=== PATIENT | male | born 1940 | race Caucasian/White ===

== ENCOUNTER 2016-11-12 10:01 | Outpatient (CLI) | payer MEDICARE, OTHER | END 2016-11-12 10:02 | LOC: POD 10:01 | PROVIDERS: ATTEND Podiatrist Public Medicine | DX: B35.1 Tinea unguium (principal); L60.0 Ingrowing nail; M79.674 Pain in right toe(s); M79.675 Pain in left toe(s); M20.11 Hallux valgus (acquired), right foot; M20.12 Hallux valgus (acquired), left foot | CPT/HCPCS: 11721; G0463 ==

== ENCOUNTER 2017-02-11 09:51 | Outpatient (CLI) | payer MEDICARE, OTHER | END 2017-02-11 09:52 | LOC: POD 09:51 | PROVIDERS: ATTEND Podiatrist Public Medicine | DX: B35.1 Tinea unguium (principal); L60.0 Ingrowing nail; M79.674 Pain in right toe(s); M79.675 Pain in left toe(s); M20.11 Hallux valgus (acquired), right foot; M20.12 Hallux valgus (acquired), left foot | CPT/HCPCS: 11721; G0463 ==

== ENCOUNTER 2017-03-23 10:08 | Outpatient (CLI) | payer MEDICARE, OTHER ==
[2017-03-23 10:24] LABS: BASOPHILS % 0.8 (0.0-1.5); EOSINOPHILS % 1.3 % (0.0-6.8); MEAN CORPUSCULAR VOLUME 84.5 fl (80.0-100.0); MONOCYTES % 5.8 % (0.0-11.0); NEUTROPHILS # 5.4 # k/uL (1.4-7.7)
[2017-03-23 11:04] LABS: eGFR (African) > 60; eGFR (Non-African) > 60
== END 2017-03-23 10:09 ==
LOC: LAB 10:08
PROVIDERS: ATTEND Family Medicine
DX: I10 Essential (primary) hypertension (principal)
CPT/HCPCS: 36415; 80053; 85025

== ENCOUNTER 2017-05-13 09:56 | Outpatient (CLI) | payer MEDICARE, OTHER | END 2017-05-13 09:57 | LOC: POD 09:56 | PROVIDERS: ATTEND Podiatrist Public Medicine | DX: B35.1 Tinea unguium (principal); L60.0 Ingrowing nail; M20.11 Hallux valgus (acquired), right foot; M79.675 Pain in left toe(s); M79.674 Pain in right toe(s); M20.12 Hallux valgus (acquired), left foot | CPT/HCPCS: 11721; G0463 ==

== ENCOUNTER 2017-08-12 10:21 | Outpatient (CLI) | payer MEDICARE, OTHER | END 2017-08-12 10:22 | LOC: POD 10:21 | PROVIDERS: ATTEND Podiatrist Public Medicine | DX: M79.674 Pain in right toe(s) (principal); M79.675 Pain in left toe(s); B35.1 Tinea unguium; L60.0 Ingrowing nail; M20.11 Hallux valgus (acquired), right foot; M20.12 Hallux valgus (acquired), left foot | CPT/HCPCS: 11721; G0463 ==

== ENCOUNTER 2017-11-18 09:42 | Outpatient (CLI) | payer MEDICARE, OTHER | END 2017-11-18 09:43 | LOC: POD 09:42 | PROVIDERS: ATTEND Podiatrist Public Medicine | DX: M79.674 Pain in right toe(s) (principal); M79.675 Pain in left toe(s); B35.1 Tinea unguium; L60.0 Ingrowing nail; M20.11 Hallux valgus (acquired), right foot; M20.12 Hallux valgus (acquired), left foot | CPT/HCPCS: 11721; G0463 ==

== ENCOUNTER 2018-02-08 15:07 | Outpatient (CLI) | payer MEDICARE, OTHER ==
--- NOTE | 2018-02-08 18:08 | Diagnostic Imaging Report ---
DMITRY JO [facility] [address] [facility] [address] [address] Report Submission Date: February 08, 2018 4:40:21 PM CDT Patient Study Name: PATRICE CARTER Date: February 08, 2018 3:51:00 PM CDT Modality Type: DX Gender: M Description: LOWER EXTREMITY : 41 Institution: [facility] Physician: DMITRY JO HISTORY: 77-year-old male with chronic left knee pain for the past 4 years since right knee arthroplasty. COMPARISON: None available. TECHNIQUE: AP standing views of the bilateral knees were performed. FINDINGS: No acute fracture is identified about either knee. There is a right knee medial compartment unicompartmental arthroplasty without evidence of loosening or other complication. There is moderate joint space narrowing of the left knee medial compartment. IMPRESSION: 1. No evidence of acute fracture of either knee on these limited AP films. 2. Postoperative changes of unicompartmental arthroplasty of the right knee medial compartment. 3. Moderate joint space narrowing of the left knee medial compartment. Electronically signed on February 08, 2018 4:40:21 PM CDT by: Prosper WYLIE
--- NOTE | 2018-02-08 18:09 | Diagnostic Imaging Report ---
DMITRY JO [facility] [address] [facility] [address] Report Submission Date: February 08, 2018 4:42:06 PM CDT Patient Study Name: PATRICE CARTER Date: February 08, 2018 3:58:04 PM CDT Modality Type: DX Gender: M Description: LOWER EXTREMITY : 41 Institution: [facility] Physician: DMITRY JO HISTORY: 77-year-old male with chronic left knee pain for the past 4 years since right knee arthroplasty. COMPARISON: AP radiograph of the left knee from the same day. TECHNIQUE: Lateral and sunrise views of the left knee were performed. FINDINGS: No acute fracture is identified about the left knee. No significant lateral patellar subluxation on the sunrise view. There are small patellofemoral marginal osteophytes. No definite effusion. IMPRESSION: 1. No fracture or acute osseous abnormality of the left knee. 2. Mild degenerative changes of the patellofemoral compartment and mild to moderate degenerative changes of the medial compartment. Electronically signed on February 08, 2018 4:42:06 PM CDT by: Prosper WYLIE
== END 2018-02-08 15:15 ==
LOC: RAD 15:07
PROVIDERS: ATTEND Family Medicine
DX: M25.562 Pain in left knee (principal)
CPT/HCPCS: 73562; 73565

== ENCOUNTER 2018-02-17 10:17 | Outpatient (CLI) | payer MEDICARE, OTHER | END 2018-02-17 10:20 | LOC: POD 10:17 | PROVIDERS: ATTEND Podiatrist Public Medicine | DX: M79.674 Pain in right toe(s) (principal); M79.675 Pain in left toe(s); B35.1 Tinea unguium; L60.0 Ingrowing nail; M20.11 Hallux valgus (acquired), right foot; M20.12 Hallux valgus (acquired), left foot | CPT/HCPCS: 11721; G0463 ==

== ENCOUNTER 2019-01-05 15:13 | Outpatient (CLI) | payer MEDICARE, OTHER | END 2019-01-05 15:14 | LOC: LAB 15:13 | PROVIDERS: ATTEND Nurse Practitioner Family | DX: E55.9 Vitamin D deficiency, unspecified (principal) | CPT/HCPCS: 36415; 82306 ==

== ENCOUNTER 2019-07-17 10:35 | Emergency (ER) | payer MEDICARE, OTHER ==
[2019-07-17] MEDS ORDERED: 0.9 % SODIUM CHLORIDE 1,000 ML IV ONE (10:44)
[2019-07-17] MEDS ORDERED: ONDANSETRON HCL/PF 4 MG/ 2ML VIAL IVP ONE (10:44)
--- NOTE | 2019-07-17 10:50 | ED Physician Documentation ---
General Adult - HISTORIAN Historian: patient, paramedics - HPI Stated Complaint: weakness and vomiting Chief Complaint: General Adult Additional Information: Patient present to ED via EMS from assisted living after having weakness and vomiting this morning. Patient states he woke up and felt fine, however, he began to feel weak and had 2 episodes of vomiting approximately 2 hours after waking up. He denies any abdominal pain, chest pain, shortness of breath or dizziness. Onset: hours (2) Timing: better Severity: moderate - ROS CONST: weakness. denies: fever CVS/RESP: denies: chest pain, shortness of breath GI/: vomiting, nausea. denies: abdominal pain, diarrhea MS/SKIN/LYMPH: none NEURO/PSYCH: denies: headache, dizziness - PAST HX Past History: hypertension Other History: other (Schizohrenia, Parkinsons) Surgeries/Procedures: none Allergies/Adverse Reactions: Allergies Allergy/AdvReac Type Severity Reaction Status Date / Time lisinopril AdvReac Cough Verified 07/17/19 11:00 Home Medications: Ambulatory Orders Medication Instructions Recorded Carbidopa/Levodopa [Carbidopa-Levo 1 each PO TID 07/17/19 25-100 mg Odt] Cholecalciferol (Vitamin D3) 1,000 unit PO DAILY 07/17/19 [Vitamin D3] Furosemide [Lasix] 20 mg PO DAILY 07/17/19 Ondansetron HCl Rapdis [Zofran Odt] 4 mg PO Q8 PRN #20 tab 07/17/19 - SOCIAL HX Smoking History: non-smoker Alcohol Use: none Drug Use: none - FAMILY HX Family History: No - REVIEWED ASSESSMENTS Nursing Assessment Reviewed: Yes Vitals Reviewed: Yes Progress - Progress Progress: 1137 Patient feeling much better after IVF and Zofran - EKG/XRAY/CT Comments: [address] elevation 59 bpm ED Results Lab/Radiology - Lab Results Lab Results: UA - Glucose trace, +1 blood, specific gravity 1.020 - Radiology Radiology Impressions: Report Submission Date: Jul 17, 2019 11:25:11 AM CDT Patient Study Name: PATRICE CARTER Date: Jul 17, 2019 10:47:33 AM CDT Modality Type: DX Gender: M Description: CHEST 1VIEW : 41 Institution: [facility] Physician: CHIKA BANERJEE HISTORY: 78-year-old male with weakness. COMPARISON: None available. TECHNIQUE: Single portable AP view of the chest was performed with apical lordotic technique. FINDINGS: No pneumothorax, consolidative infiltrates, or pulmonary edema. The heart is enlarged. IMPRESSION: Cardiomegaly without evidence of acute intrathoracic process. Electronically signed on Jul 17, 2019 11:25:11 AM CDT by: Prosper Hernandez - Orders Orders: ED Orders Category Date Time Status Place IV Lock 1T Care 07/17/19 10:43 Active CHEST 1VIEW [RAD] Stat Exams 07/17/19 Ordered CBC/PLATELET/DIFF Routine Lab 07/17/19 Ordered CMP Routine Lab 07/17/19 Ordered NT BNP Stat Lab 07/17/19 Ordered TROPONIN I Stat Lab 07/17/19 Ordered UA W/MICRO IF INDICATED Routine Lab 07/17/19 10:43 Ordered 0.9 % Sodium Chloride [Normal Saline] 1,000 ml Med 07/17/19 10:44 Active IV Q1H Ondansetron HCl/Pf [Zofran] Med 07/17/19 10:44 Discontinued 4 mg IVP NOW ONE EKG WITH COMPARISON Stat Ther 07/17/19 Ordered General Adult Physical Exam - PHYSICAL EXAM GENERAL APPEARANCE: no distress EENT: FORD, dry mucous membranes NECK: supple RESPIRATORY: no resp distress, chest non-tender, breath sounds normal CVS: reg rate & rhythm, heart sounds normal ABDOMEN: soft, normal bowel sounds, non-tender BACK: normal inspection, no CVA tenderness SKIN: warm/dry EXTREMITIES: edema (+1 lower extremity edema bilaterally to mid tib/fib) NEURO: oriented X3, motor nml, mood/affect nml Discharge Clincal Impression: Gastroenteritis Prescriptions: Ondansetron HCl Rapdis [Zofran Odt] 4 mg PO Q8 PRN #20 tab PRN Reason: nausea/vomiting Referrals: Navarro Shepherd MD [Primary Care Provider] - 2 Days Additional Instructions: 1. Take Zofran every 8 hours as needed for nausea 2. Drink plenty of fluids to maintain proper hydration. Avoid caffeine. 3. Follow up with PCP within 1 week 4. Return to ER for new or worsening symptoms Condition: Stable Disposition: 01 HOME, SELF-CARE Decision to Admit: NO Date of Decison to Admit: 07/17/19 Decision Time: 11:40
[2019-07-17 11:02] LABS: BASOPHILS % 0.4 % (0.0-1.5)
[2019-07-17 11:23] LABS: eGFR (Non-African) > 60
--- NOTE | 2019-07-17 13:01 | Diagnostic Imaging Report ---
PATIENT MR#: [id number] PATIENT PATIENT NAME: PATRICE CARTER DATE OF : 1940 REFERRING PHYSICIAN: Julia Fraga EXAM DATE: 07/17/2019 ACCESSION NUMBER: [id number] EXAM DESCRIPTION: KNEE 3 VIEWS Right knee 3 views Clinical history pain Technique AP lateral sunrise Findings: There is a right knee hemiarthroplasty in the medial compartment. There is degenerative art hritis of the lateral compartment. No fracture joint effusion is identified.. Patellofemoral joint narrowing is pre sent. Calcification lateral to the patella represent a loose body or soft tissue calcification Impression: Intact medial compartment the right knee arthroplasty. Degenerative arthritis. No acute bony pathology Read by: Dr. Saji Mckeon Transcribed by: Transcribed Date: Electronically signed by: Dr. Saji Mckeon Date signed: 07/17/2019 1:00:38 PM
--- NOTE | 2019-07-17 14:00 | Diagnostic Imaging Report ---
PATIENT MR#: [id number] PATIENT PATIENT NAME: PATRICE CARTER DATE OF : 1940 REFERRING PHYSICIAN: Julia Fraga EXAM DATE: 07/17/2019 ACCESSION NUMBER: [id number] EXAM DESCRIPTION: CT BRAIN W/O CONTRAST CT brain noncontrast Date of study: July 17, 2019 Note time : 07/17/2019 1:51:03 PM User : Cecile Corley [employer] TECHNIQUE: 5 mm contiguous axial images of the brain, noncontrast. FINDINGS: There is no evidence of intracranial mass effect, hemorrhage, or acute hydrocephalus. The lateral kenneth tricles are enlarged due to atrophy and the 4th ventricle is midline without shift. No acute brain parenchymal ch anges or extra-axial fluid collections are identified. Cerebral and cerebellar atrophy are present. White zina er gliosis. Right periventricular infarct appears old. The calvarium is intact. The visualized sinuses and mastoid air cells are clear. Intracranial atheros clerotic vascular calcification is present. IMPRESSION: No acute intracranial process. Chronic atrophy and white matter gliosis. a Right periventricular lacunar infarct appears to be an old finding although there is no previous CT for comparison Read by: Dr. Sjai Mckeon Transcribed by: Transcribed Date: Electronically signed by: Dr. Saji Mckeon Date signed: 07/17/2019 1:59:38 PM
[2019-07-17 14:45] VITALS: BP 149/67
[2019-07-18 06:43] LABS: COLOR,URINE YELLOW (YELLOW)
[2019-07-18 06:44] LABS: APPEARANCE,URINE CLEAR (CLEAR); OCCULT BLOOD,URINE 1+ (NEGATIVE); PH URINE 7.5 (5.0 - 8.0); UROBILINOGEN URINE 0.2 Eu (0.2-1.0)
--- NOTE | 2019-07-19 13:34 | Diagnostic Imaging Report ---
[facility] [address] [facility] [address] Patient Name: PATRICE CARTER Referring Physician: CHIKA ASH Date of : 1940 Radiologist: Gender: M Date of Service: 07/17/2019 Exam Requested: CHEST 1VIEW HISTORY: 78-year-old male with weakness. COMPARISON: None available. TECHNIQUE: Single portable AP view of the chest was performed with apical lordotic technique. FINDINGS: No pneumothorax, consolidative infiltrates, or pulmonary edema. The heart is enlarged. IMPRESSION: Cardiomegaly without evidence of acute intrathoracic process. N
== END 2019-07-17 14:31 | disposition home or self-care (01) ==
LOC: ED 10:35
DX: K52.9 Noninfective gastroenteritis and colitis, unspecified (principal)
CPT/HCPCS: 36415; 70450; 71045; 73562; 80053; 81002; 83880; 84484; 85025; 93005; 96361; 96374; 99283; 99284; J2405; J7030; S1016

== ENCOUNTER 2019-07-18 10:40 | Emergency (ER) | payer MEDICARE, OTHER ==
--- NOTE | 2019-07-18 11:29 | ED Physician Documentation ---
General Adult - HISTORIAN Historian: patient - HPI Stated Complaint: R leg swelling Chief Complaint: General Adult Further Comments: yes (78 year old male patient brought in by direct of shelter for evaluation of right leg swelling. RN noticed swelling in patient's leg this morning. Patient was seen in ER yesterday. All records reviewed. Director reports patient is followed by [facility] in [place]. His neurologist is Dr Bolden in [place], [place]) - ROS CONST: recent illness (seen in ER 07/17 for N/V, weakness) EYES/ENT: none CVS/RESP: none GI/: none MS/SKIN/LYMPH: none - PAST HX Past History: hypertension, other (Alzheimers, involuntary muscle movements, schizophrenia, glacoma, mental retardation) Allergies/Adverse Reactions: Allergies Allergy/AdvReac Type Severity Reaction Status Date / Time lisinopril AdvReac Cough Verified 07/18/19 10:57 Home Medications: Ambulatory Orders Medication Instructions Recorded Carbidopa/Levodopa [Carbidopa-Levo 1 each PO TID 07/17/19 25-100 mg Odt] Cholecalciferol (Vitamin D3) 1,000 unit PO DAILY 07/17/19 [Vitamin D3] Furosemide [Lasix] 20 mg PO DAILY 07/17/19 Ondansetron HCl Rapdis [Zofran Odt] 4 mg PO Q8 PRN #20 tab 07/17/19 - SOCIAL HX Smoking History: non-smoker - FAMILY HX Family History: No - VITAL SIGNS Vital Signs: Vital Signs Temp Pulse Resp BP Pulse Ox 98.9 F 54 L 19 159/65 98 07/18/19 10:40 07/18/19 10:40 07/18/19 10:40 07/18/19 10:40 07/18/19 10:40 - REVIEWED ASSESSMENTS Nursing Assessment Reviewed: Yes Vitals Reviewed: Yes Progress - Progress Progress: Spoke with Laura Melendez [employer] - patient's PCP. Patient has a history of bradycardia in 60s. MRI of Brain 05/08 was negative. Patient is followed by Dr Bolden - neurology. Today in ER HR 48-52 - will stop bystolic per discussion with PCP. US right leg negative. Will start congentin, low dose; PCP to adjust as needed. Patient appears to barajas ve constant Tardive dyskinesia movements. ED Results Lab/Radiology - Radiology Radiology Impressions: Exam: Right lower extremity venous Doppler study. History: Swelling. Doppler interrogation and color Doppler imaging of the venous structures in the right lower extremity are submitted. Spectral Doppler analysis demonstrates spontaneous and augmentable venous flow. Color Doppler imaging reveals no thrombus formation. The venous structures are compressible. Impression: No sonographic evidence of deep vein thrombosis. Electronically signed by: Dr. Vince Gleason - Orders Orders: ED Orders Category Date Time Status VENOUS DUPLEX OF RT LE [US U OR L EXT VEINS UNILAT] [US Exams 07/18/19 Ordered ] Stat EKG WITH COMPARISON Stat Ther 07/18/19 10:58 Ordered General Adult Physical Exam - PHYSICAL EXAM GENERAL APPEARANCE: mild distress EENT: eye inspection normal, FORD RESPIRATORY: no resp distress, chest non-tender, breath sounds normal CVS: reg rate & rhythm, heart sounds normal, equal pulses, no murmur, no gallop, PMI nml, no JVD, no friction rub, 24 ABDOMEN: soft, no organomegaly, normal bowel sounds, no abdominal bruit, no distension SKIN: normal color, warm/dry, NR, INT, PAL, DR EXTREMITIES: non-tender, normal range of motion, no evidence of injury, edema (unitaleral edema noted in right leg - moderate amount), other NEURO: motor nml, sensation nml, cognition normal, other (MAEx4, no focal weakness; constant involuntary muscle movement and facial movement) Discharge Clincal Impression: Leg edema, right, Extrapyramidal and movement disorder Referrals: Aury Melendez [NURSE PRACTITIONER] - 2 Days (Thursday, 3pm) Additional Instructions: There was no DVT/clot on your ultrasound STOP THE BYSTOLIC per Aury Melendez [employer] Start congentin before bedtime - this medication will help with the constant movements You have a follow appointment with Aury on Thursday at 3:00 pm Condition: Stable Disposition: 01 HOME, SELF-CARE Decision to Admit: NO Decision Time: 13:06
--- NOTE | 2019-07-18 13:00 | Diagnostic Imaging Report ---
PATIENT MR#: [id number] PATIENT PATIENT NAME: PATRICE CARTER DATE OF : 1940 REFERRING PHYSICIAN: SINDHU SMITH EXAM DATE: 07/18/2019 ACCESSION NUMBER: [id number] EXAM DESCRIPTION: US U OR L EXT VEINS UNILAT Exam: Right lower extremity venous Doppler study. History: Swelling. Doppler interrogation and color Doppler imaging of the venous structures in the right lower extremity are submitted. Spectral Doppler analysis demonstrates spontaneous and augmentable venous flow. Color Doppler imaging reveals no thrombus formation. The venous structures are compressible. Impression: No sonographic evidence of deep vein thrombosis. Read by: Dr. Vince Gleason Transcribed by: Transcribed Date: Electronically signed by: Dr. Vince Gleason Date signed: 07/18/2019 12:59:41 PM
[2019-07-18 13:19] VITALS: BP 142/67
== END 2019-07-18 13:13 | disposition home or self-care (01) ==
LOC: ED 10:40
DX: G25.9 Extrapyramidal and movement disorder, unspecified (principal); R60.0 Localized edema
CPT/HCPCS: 93005; 93971; 99282

== ENCOUNTER 2019-08-03 13:45 | Outpatient (CLI) | payer MEDICARE, OTHER ==
--- NOTE | 2019-08-08 13:55 | CONSULTATION REPORT ---
CHIEF COMPLAINT: Right knee evaluation. HISTORY OF PRESENT ILLNESS: This 78-year-old white male is seen, accompanied by a care provider from the facility where he resides, for orthopedic recommendations regarding his right knee. He sees SHABNAM Jacques, for routine primary care needs, and I note that the patient has been using a walker because of balance issues for the last couple of weeks, per care provider. The patient indicates the walker does help him. He does have a history of a stroke which he says affected the right side, was noted to have undergone an MRI of the brain 04/2018 which was negative, and the patient underwent a CT of the brain 07/17/2019 which revealed no acute intracranial process, chronic atrophy and white matter gliosis, and a right periventricular lacunar infarct which appeared to be an old finding, although there was no previous CT for comparison, that study read by Saji Mckeon, performed at the [facility]. The patient did present to the emergency department at [facility] on 07/18/2019 with impression of right lower extremity edema with extrapyramidal and movement disorder. I do note this patient is status post a medial unicompartmental knee replacement performed in 2014 at [facility] by Dr. Tyree Weir. I do note that the patient is reported to have had difficulty getting up and down using that right leg and also has had symptoms of the knee wanting to give out on him. He says he does a little better with the walker, however. The patient does report that he does not hurt currently, and the pain is not a feature of his presentation. Difficulties are worse with activity. He does report decrease in mobility and some knee swelling at times. He says nothing makes his knee better. He does not have night pain. He does experience, on occasion, locking, catching, giving out right knee. He ambulates with moderate difficulty using the walker. He did start doing some physical therapy 07/27/2019 per recommendation of Aury Melendez, per pediatric acute care unit nurse with patient today. The patient did not have any injections. SOCIAL HISTORY: He does not use alcohol. He does use smokeless tobacco. There is no history of alcohol abuse. PAST MEDICAL HISTORY: He does report dental problems. He does have additional diagnoses listed to include undifferentiated schizophrenia, moderate intellectual disabilities, glaucoma, essential hypertension, seborrheic dermatitis, vitamin B deficiency. The patient has received psychiatric care in the past, says Dr. Caldwell with the neurology department sees him in [place], [place], along with Aury Melendez there. MEDICATIONS: He has medications from the [facility] facility listed to include acetaminophen, Alphagan eye drops, amlodipine besylate, carbidopa/levodopa, compression stockings, donepezil, fenofibrate, fluticasone spray, furosemide, ibuprofen, losartan, potassium, latanoprost eye drops, metoprolol tartrate, omeprazole, ondansetron, ranitidine, Tessalon Perles, vitamin D 1000 unit tablet. ALLERGIES: The patient does have allergy to lisinopril, reports it makes him cough. PHYSICAL EXAMINATION: Vital signs are recorded today revealing temperature of 97.5, respiratory rate 20, pulse is 60, blood pressure 164/72. The patient does have oxygen saturation of 95% on room air. His height is 5 feet 8 inches, weight of 233 pounds with a calculated BMI of 35.42. HEENT normocephalic. Neck supple. Lungs are clear to percussion bilaterally. Cardiovascular regular rate and rhythm. Abdomen soft, nontender. Extremities, pulses are present and symmetric at posterior tibialis bilaterally. He has a well-healed incision along the anteromedial aspect of the right knee. There is trace effusion right knee. There is no induration or erythema is noted right knee. Range of motion of right knee is from near full extension to greater than 90 degrees of flexion. There is no tenderness along the joint lines or bony landmarks of the right knee. The patient does have mild decrease in sensation right lower extremity which he describes as longstanding post his stroke indeterminate timeframe in the past. He says the stroke did affect the right side, not the left. X-RAYS: I did obtain x-rays of the right knee, and these are noted to reveal medial compartment unicompartmental replacement device. No loosening is evident. Alignment is satisfactory. The patient also appears to have some patellofemoral degenerative change suggested, noted on the lateral view of that knee. No acute bony abnormalities are evident. The patient ambulates with a mild limp. The patient has good capillary refill distally both lower extremities. IMPRESSION: 1. Mobility impairment, likely secondary to longstanding neurologic impairment, possibly with new onset of some disuse atrophy. 2. I see no problems with the medial unicompartmental knee replacement construct, either on clinical exam or x-ray assessment, although I would defer any further assessment to that patient's treating orthopedic physician/surgeon, Dr. Tyree Weir in [place]. 3. Hypertension. 4. Undifferentiated schizophrenia history. 5. History of stroke affecting the right side in the past. 6. Moderate intellectual disability. 7. Glaucoma. 8. Vitamin B deficiency. 9. Seborrheic dermatitis. 10. Moderate obesity (BMI 35). RECOMMENDATIONS: Options are discussed with the patient and care provider. I do not believe that additional orthopedic surgical intervention would benefit this gentleman at this time. I do believe he needs to keep his scheduled appointment with Dr. Caldwell, neurologist, as has reportedly been scheduled already under recommendation of SHABNAM Jacques, as well as emergency care provider at [facility]. I did recommend the patient continue to use his walker for stability purposes. It is encouraging that he says he is a little better in the last week or so, says the walker helps a lot. I did encourage him to continue his therapy efforts. Thank you for the opportunity to evaluate this pleasant gentleman. Sincerely, Washington Dozier MD/Deon [id number] Job #[id number] cc: SHABNAM Jacques [facility] PAWEL Reyes
== END 2019-08-03 14:15 ==
LOC: ORHTO 13:45
PROVIDERS: ATTEND Orthopaedic Surgery
DX: F71 Moderate intellectual disabilities (principal); I10 Essential (primary) hypertension; H40.9 Unspecified glaucoma; Z74.09 Other reduced mobility; E53.9 Vitamin B deficiency, unspecified; L21.9 Seborrheic dermatitis, unspecified; E66.9 Obesity, unspecified; Z68.35 Body mass index [BMI] 35.0-35.9, adult; Z86.59 Personal history of other mental and behavioral disorders
CPT/HCPCS: 99202; G0463